=== PATIENT | male | born 1965 | race Asian ===

== ENCOUNTER → 2019-05-28 | Day surgery (SDC) | payer OTHER ==
[~2019-05-28] MED LIST: GLUCAGON FOR INJ 1 MG VIAL ONE; HYOSCYAMINE 0.125 MG TAB ONE; MIDAZOLAM HCL 2 MG/2 ML VIAL ONE; PROPOFOL IV EMULSION 10 MG/ML 50 ML VIAL ONE
[2019-05-28 10:42] VITALS: BP 120/88
--- OUTSIDE RECORDS SUMMARY | 2019-05-28 12:20 | XMS REPORT | Summary of Care ---
Author Author MONROE SHAFFER M.D. Organization Unknown Address [facility] Phone Unavailable Care Team Providers Care Naturopathic Physician Name Role Phone MONROE SHAFFER M.D. 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 * Start : 07-Apr-2017 Active Allergies and Adverse Reactions Name Dates Details No Known Drug Allergies (Allergy) Status: Active Past Medical History Name Dates Details History of Back pain (724.5, M54.9) Status: Resolved Procedures Procedure Dates Details History of Knee Surgery Completed Immunization Name Dates Details Immunizations not documented Social History Name Dates Details - Status: Name Dates Details Never smoker Vital Signs Date Test Result Details No Known Vitals to report Results Date Description Value Details [id number] [U] XRAY KNEE 1 OR 2 VWS LEFT [id number] XR KNEE 1 OR 2 VWS LEFT Images acquired, not reported on this accession number. Plan of Care Name Dates Details Planned Observations Planned Goals not documented Planned Encounters Appointment; MONROE SHAFFER M.D. On: 29-Sep-2017 13:45 Interventions Provided Plan* Patient Education/Instructions: * Patient Education Provided * Reassurance * Counseling Provided. * Physical Activity/ Sports Clearance:. * Weightbearing status:. * Patient/Parent to call or return with any abnormal changes * Orders: * Physical Therapy * Medications:. * Follow Up: * Return to the clinic in 2 months or as needed. Instructions Name Dates Details Instructions not documented Encounters Appointment; MONROE SHAFFER M.D. Encounter Diagnosis: Problem not documented On: 31-Jan-2017 13:00 Appointment; MONROE SHAFFER M.D. Encounter Diagnosis: Problem not documented On: 24-Feb-2017 15:30 Appointment; MONROE SHAFFER M.D. Encounter Diagnosis: Problem not documented On: 04-Apr-2017 14:15 Appointment; MONROE SHAFFER M.D. Encounter Diagnosis: Problem not documented On: 08-Apr-2017 10:00 Appointment; MONROE SHAFFER M.D. Encounter Diagnosis: Problem not documented On: 11-Apr-2017 10:45 Appointment; MONROE SHAFFER M.D. Encounter Diagnosis: Problem not documented On: 09-May-2017 13:45 Appointment; MONROE SHAFFER M.D. Encounter Diagnosis: Problem not documented On: 02-Jun-2017 13:45 Appointment; MONROE SHAFFER M.D. Encounter Diagnosis: Problem not documented On: 28-Jul-2017 13:45
--- NOTE | 2019-05-28 17:21 | Operative Report ---
DATE OF PROCEDURE: 05/28/2019 SURGEON: Dwayne Araya MD PROCEDURE PERFORMED: Colonoscopy with polypectomy. REFERRING PHYSICIAN: Dayday Mccurdy MD INDICATION FOR COLONOSCOPY: Colorectal cancer screening. MEDICATIONS: The patient was done under MAC, please see anesthesiologist's note. PROCEDURE IN DETAIL: With the patient in left lateral decubitus position, the flexible fiberoptic Olympus colonoscope was inserted into the rectum with ease and advanced all the way to the cecum. It was then withdrawn slowly. Mucosa overlying the cecum, ascending colon, transverse, descending, and sigmoid colon appeared to be within normal limits. Two minute hyperplastic-appearing polyps were removed per hot biopsy forceps. The scope was then retroflexed into the distal rectum and small internal hemorrhoids were noted, none of which was actively bleeding. The scope was then straightened out, it was subsequently withdrawn. The patient tolerated procedure well. IMPRESSION: 1. Rectal polyps x2, minute, hyperplastic appearing, hot biopsied. 2. Internal hemorrhoids, none actively bleeding. PLAN: Follow up histology. Initiate high-fiber, low-fat diet. Initiate high-fiber supplement. The patient might benefit from a followup colonoscopy in 5 years. Dwayne Araya MD [facility] /[id number] cc: Dayday Mccurdy MD
== END | disposition home or self-care (01) ==
LOC: OR 08:30
PROVIDERS: ATTEND Internal Medicine Gastroenterology
DX: Z12.11 Encounter for screening for malignant neoplasm of colon (principal); K62.1 Rectal polyp; K64.8 Other hemorrhoids; K21.9 Gastro-esophageal reflux disease without esophagitis; E11.9 Type 2 diabetes mellitus without complications; E78.5 Hyperlipidemia, unspecified; M54.9 Dorsalgia, unspecified; R06.02 Shortness of breath; R03.0 Elevated blood-pressure reading, without diagnosis of hypertension; F41.9 Anxiety disorder, unspecified; Z01.810 Encounter for preprocedural cardiovascular examination
CPT/HCPCS: 45378; 93005; J1610; J2250